=== PATIENT | female | born 1985 | race Caucasian/White ===

== ENCOUNTER 2021-03-26 13:03 | Emergency (ER) | payer SELFPAY ==
[~2021-03-26] VITALS: Ht 165 cm; Wt 75.0 kg
--- NOTE | 2021-03-26 14:23 | ED Headache ---
General Chief Complaint: Head/Cervical Problems Stated Complaint: BURDICK,NECK/SHOULDER PAIN Source: patient Exam Limitations: no limitations (SANJUANITA NEVES STUDENT) History of Present Illness Date Seen by Provider: Mar 26, 2021 Time Seen by Provider: 14:15 Initial Comments Patient is a 35yoF with history of migraines and prescription drug abuse in distant past who presents with chief complaint of neck pain, stiffness and headache that began suddenly 4 days ago. Patient states she was relaxing and laying down when she suddenly had a burning pain at the back of her neck and a "deep burning in right ear" that has now spread to involve most of the neck. She has shoulder pain as well as a "heaviness" in her shoulders. Three days ago she also developed a L-sided headache that moved to the right side the next day and has been bilateral in the vertex area since yesterday. She does not like to take medication, but she has been alternating Tylenol and Ibuprofen (last dose 0600) which helps very little. She also has intermittent dizziness and lightheadedness as well as photophobia. She is nauseous and has been throwing up over the last few days. She says that this headache does not feel like migraines she has had in the past and she has never felt the burning sensation in her neck before. She denies aura, otalgia, sore throat, diarrhea, fever at home, SOA and chest pain. There was no trauma to the neck. Patient has had a tubal ligation. She is febrile in the ED 100.5F. Severity/Quality: severe Location: occipital Prior Headaches/Recent Trauma: no recent headache/trauma Modifying Factors: improves with exposure to light Associated Symptoms: nausea/vomiting, stiff neck (SANJUANITA NEVES STUDENT) Allergies and Home Medications Allergies Coded Allergies: cefaclor (Verified Allergy, Unknown, 03/26/21) oseltamivir (Verified Allergy, Unknown, 03/26/21) Patient Home Medication List Home Medication List Reviewed: Yes (KECIA SANTAMARIA) Hydrocodone/Acetaminophen (Hydrocodone-Acetamin 5-325 mg) 1 Each Tablet, 1 TAB PO Q6H PRN for PAIN-MODERATE (5-7) Prescribed by: KECIA SANTAMARIA on 03/26/21 135 Indomethacin (Indomethacin) 50 Mg Capsule, 50 MG PO BID WITH MEALS PRN for severe headache Prescribed by: REYMUNDO MEJIA on 03/26/21 1729 Ondansetron (Ondansetron Odt) 4 Mg Tab.rapdis, 4 MG PO Q6H PRN for NAUSEA/VOMITING Prescribed by: KECIA SANTAMARIA on 03/26/21 1831 Tizanidine HCl (Tizanidine HCl) 2 Mg Tablet, 2 MG PO Q8H PRN for muscle spasm Prescribed by: REYMUNDO MEJIA on 03/26/21 1729 Discontinued Medications Indomethacin (Indomethacin) 50 Mg Capsule, 50 MG PO BID WITH MEALS PRN for headache Prescribed by: REYMUNDO MEJIA on 03/26/21 1725 Review of Systems Review of Systems Constitutional: No chills, No diaphoresis; dizziness; No fever, No weakness Eyes: Denies Blurred Vision, Denies Decreased Acuity; Photophobia Ears, Nose, Mouth, Throat: denies ear pain, denies nose discharge, denies throat pain Respiratory: No cough, No short of breath Cardiovascular: No chest pain, No edema, No palpitations Gastrointestinal: No abdominal pain, No constipation, No diarrhea, No heartburn; nausea, vomiting : No Musculoskeletal: No back pain; muscle pain, muscle stiffness, neck pain Skin: no symptoms reported Psychiatric/Neurological: No Symptoms Reported (SANJUANITA NEVES STUDENT) Past Mejpmkp-Joedcm-Bcaevr Hx Patient Social History Tobacco Use?: No Use of E-Cig and/or Vaping dev: No (KECIA SANTAMARIA) Past Medical History Tubal Ligation : No (SANJUANITA NEVES STUDENT) Physical Exam Vital Signs Vital Signs - First Documented 03/26/21 14:00 Temp 37.9 Pulse 120 Resp 18 B/P (MAP) 138/71 (93) Pulse Ox 97 O2 Delivery Room Air (REYMUNDO MEJIA MD) Vital Signs Capillary Refill : (SANJUANITA NEVES) Height, Weight, BMI Height: '" Weight: lbs. oz. kg; BMI Method: General Appearance: WD/WN, no apparent distress Neck: No full range of motion; limited range of motion, tender lateral Cardiovascular: regular rate, rhythm, no edema, no murmur Respiratory: chest non-tender, lungs clear, normal breath sounds, no respiratory distress, no accessory muscle use Gastrointestinal: normal bowel sounds, non tender, soft Back: no CVA tenderness, no vertebral tenderness Extremities: normal range of motion, non-tender, no pedal edema, no calf tenderness, normal capillary refill Psychiatric: alert, oriented x 3 Crainal Nerves: normal hearing, normal speech Motor/Sensory: no motor deficit, no sensory deficit Skin: normal color, warm/dry Lymphatic: no adenopathy (SANJUANITA NEVES STUDENT) Procedures/Interventions Discussed Risk,Benefits: Yes Patient Consents: Yes Position: Lying, L4-5, Left Sterile Technique: Yes Fluid Color: clear Size of Disposal Tray Used: Adult (REYMUNDO MEJIA MD) Progress/Results/Core Measures Results/Orders Lab Results Laboratory Tests Test 03/26/21 15:01 03/26/21 17:12 Range/Units White Blood Count 4.0 L 4.3-11.0 10^3/uL Red Blood Count 4.84 3.80-5.11 10^6/uL Hemoglobin 14.6 11.5-16.0 g/dL Hematocrit 44 35-52 % Mean Corpuscular Volume 90 80-99 fL Mean Corpuscular Hemoglobin 30 25-34 pg Mean Corpuscular Hemoglobin Concent 34 32-36 g/dL Red Cell Distribution Width 13.1 10.0-14.5 % Platelet Count 213 130-400 10^3/uL Mean Platelet Volume 10.6 9.0-12.2 fL Immature Granulocyte % (Auto) 1 % Neutrophils (%) (Auto) 69 42-75 % Lymphocytes (%) (Auto) 15 12-44 % Monocytes (%) (Auto) 14 H 0-12 % Eosinophils (%) (Auto) 0 0-10 % Basophils (%) (Auto) 1 0-10 % Neutrophils # (Auto) 2.7 1.8-7.8 10^3/uL Lymphocytes # (Auto) 0.6 L 1.0-4.0 10^3/uL Monocytes # (Auto) 0.6 0.0-1.0 10^3/uL Eosinophils # (Auto) 0.0 0.0-0.3 10^3/uL Basophils # (Auto) 0.0 0.0-0.1 10^3/uL Immature Granulocyte # (Auto) 0.0 0.0-0.1 10^3/uL Sodium Level 137 135-145 MMOL/L Potassium Level 3.7 3.6-5.0 MMOL/L Chloride Level 101 98-107 MMOL/L Carbon Dioxide Level 25 21-32 MMOL/L Anion Gap 11 5-14 MMOL/L Blood Urea Nitrogen 11 7-18 MG/DL Creatinine 0.84 0.60-1.30 MG/DL Estimat Glomerular Filtration Rate 92 BUN/Creatinine Ratio 13 Glucose Level 87 70-105 MG/DL Calcium Level 9.3 8.5-10.1 MG/DL C-Reactive Protein High Sensitivity 0.68 H 0.00-0.50 MG/DL CSF Tube Number 3 CSF Appearance CLEAR CSF Color COLORLESS CSF WBC 1.6 0-5 CELLS CSF RBC 0.5 H 0-0 CELLS CSF Lymphocytes % CSF Mononuclear WBCs % CSF Polynuclear WBCs % CSF Glucose 60 50-80 MG/DL CSF Total Protein 82 H 15-40 MG/DL Reference Lab Test Specimen Type CSF Herpes Simplex Virus I DNA (PCR) Not Detected Not Detected Herpes Simplex Virus II DNA (PCR) Not Detected Not Detected (REYMUNDO MEJIA MD) Micro Results Microbiology 03/26/21 Gram Stain - Final, Resulted 03/26/21 CSF Culture - Preliminary, Resulted No growth (REYMUNDO MEJIA MD) My Orders Orders - REYMUNDO MEJIA MD Ed Iv/Invasive Line Start (03/26/21 14:35) Ct Head Wo (03/26/21 14:35) Cbc With Automated Diff (03/26/21 14:35) Basic Metabolic Panel (03/26/21 14:35) Hs C Reactive Protein (03/26/21 14:35) Ondansetron Injection (Zofran Injectio (03/26/21 14:45) Ns Iv 1000 Ml (Sodium Chloride 0.9%) (03/26/21 14:45) Ketorolac Injection (Toradol Injection) (03/26/21 14:45) Csf Culture (03/26/21 15:49) Csf Cell Count (03/26/21 15:49) Csf Glucose (03/26/21 15:49) Csf Total Protein (03/26/21 15:49) Fentanyl Inj (Sublimaze Injection) (03/26/21 16:00) Lorazepam Injection (Ativan Injection) (03/26/21 16:45) Fentanyl Inj (Sublimaze Injection) (03/26/21 17:06) Fentanyl Inj (Sublimaze Injection) (03/26/21 17:30) (REYMUNDO MEJIA MD) Medications Given in ED (REYMUNDO MEJIA MD) Vital Signs/I&O 03/26/21 03/26/21 14:00 19:10 Temp 37.9 Pulse 120 100 Resp 18 18 B/P (MAP) 138/71 (93) 124/85 Pulse Ox 97 98 O2 Delivery Room Air (REYMUNDO MEJIA MD) Progress Progress Note : Time: 16:12 Progress Note 35-year-old female presents chief complaint "worst headache of my life". Onset 4 days ago, thunderclap in nature. Was sitting playing on her phone when she had sudden severe onset of right suboccipital pain. Over the course of the 4 days she has had change in quality and severity of the pain that is now at the crown of her head and down the back of her neck. She is mildly febrile at 100.5. No visual complaints. She has been nauseous and vomiting. A little bit of problem with balance but is not ataxic. No numbness, weakness or tingling. No URI symptoms. No chest pain or shortness of breath. No abdominal pain. No sick contacts recently. She has tried Tylenol and ibuprofen without relief. No family history of brain aneurysm or tumor. No recent trauma. Labs reviewed, within normal limits. CT brain noncontrast no acute findings. Concern for subarachnoid hemorrhage and as the patient is 4 days out LP would be ideal for further evaluation. Patient is extremely apprehensive about lumbar puncture. Initially stated that she did not want to proceed with the test. I talked to her and explained the risks and benefits again. She would like me to talk to one of her friends over the phone. I have given her a little fentanyl for her nerves. Headache was slightly relieved with some Toradol. (REYMUNDO MEJIA MD) Progress Note : Time: 18:28 Progress Note Assumed care of the patient at shift change. CSF shows significantly elevated protein but not above 150. An aseptic viral meningitis seems to be most likely source of her headache nausea. Her symptoms have significantly abated after Toradol, fentanyl and Zofran. Plan to put her out with some medications and return precautions. The patient is eating and drinking and has had a liter of IV fluids. Added studies for Enterococcus and HSV PCR's. (KECIA SANTAMARIA) Diagnostic Imaging Diagonstic Imaging: CT Plain Films/CT/US/NM/MRI: head Comments [facility]. [place], [place] NAME: JALIL TIRADO [facility] REC#: [id number] PT STATUS: REG ER : 1985 PHYSICIAN: REYMUNDO MEJIA MD ADMIT DATE: 03/26/21/ER Draft Date of Exam:03/26/21 CT HEAD WO Clinical indications: Patient reports 4 days ago had neck burning and neck felt stiff. Patient had a headache onset 3 days ago. Pain meds not helping. EXAM: Axial CT scan of the brain performed without IV contrast with sagittal and coronal reformatted images. Auto Exposure Controls were utilized during the CT exam to meet ALARA standards for radiation dose reduction. COMPARISON: None. FINDINGS: There is no evidence of acute cerebral infarct, intracranial hemorrhage, or gross mass effect. The brain parenchymal volume appears appropriate for patient's age. There is normal north-white matter distinction. There is no significant midline shift or herniation. There is no evidence of hydrocephalus. The basal cisterns are unremarkable. The skull, extracranial soft tissue, and orbits are unremarkable. There is moderate lobulated mucosal thickening involving both maxillary sinuses. There is mild mucosal thickening involving the ethmoid sinus and sphenoid sinus. Temporal bones show no significant abnormality. IMPRESSION: [id number] paranasal sinus disease. Otherwise unremarkable CT scan the brain. Dictated on workstation # [id number] Dict: 03/26/21 1450 Trans: 03/26/21 7035 NURIA [id number] Interpreted by: DEBORAH MILLS MD Electronically signed by: (REYMUNDO MEJIA MD) Departure Impression Primary Impression: Headache, acute Qualified Codes: R51.9 - Headache, unspecified Additional Impression: Viral meningitis, unspecified Disposition: 01 HOME, SELF-CARE Condition: Stable Departure-Patient Inst. Decision time for Depature: 17:25 (REYMUNDO MEJIA MD) Referrals: NO,LOCAL PHYSICIAN (PCP/Family) Primary Care Physician Patient Instructions: Headache, Adult, Viral Meningitis, Adult ED Add. Discharge Instructions: Drink lots of fluids to stay well-hydrated. Use a heating pad to the sore areas of your neck and upper back as needed. Monitor yourself at home for fever. Come back if you find that it is worsening and you have new concerning symptoms. Tizanidine, which is a muscle relaxer, 2 mg every 8 hours as needed for muscle spasm/pain. Indomethacin which is an anti-inflammatory/pain medicine, 1 tablet every 6-8 hours with food as needed for severe headache. Do not take extra ibuprofen when taking indomethacin. Hydrocodone 1 tablet every 6 hours as necessary for severe breakthrough pain. Ondansetron 1 tablet every 6 hours under the tongue as necessary for nausea and or vomiting. Come back to the emergency room for any worsening headache, new emergent concerning symptoms. Scripts Hydrocodone/Acetaminophen (Hydrocodone-Acetamin 5-325 mg) 1 Each Tablet 1 TAB PO Q6H PRN for PAIN-MODERATE (5-7), #10 TAB 0 Refills Prov: KECIA SANTAMARIA 03/26/21 Ondansetron (Ondansetron Odt) 4 Mg Tab.rapdis 4 MG PO Q6H PRN for NAUSEA/VOMITING, #15 TAB 0 Refills Prov: KECIA SANTAMARIA 03/26/21 Tizanidine HCl (Tizanidine HCl) 2 Mg Tablet 2 MG PO Q8H PRN for muscle spasm, #12 TAB Prov: REYMUNDO MEJIA MD 03/26/21 Indomethacin (Indomethacin) 50 Mg Capsule 50 MG PO BID WITH MEALS PRN for severe headache, #20 CAP Prov: REYMUNDO MEJIA MD 03/26/21 Verification and Attestation of Medical Student E/M Service A medical student performed and documented this service in my presence. I reviewed and verified all information documented by the medical student and made modifications to such information, when appropriate. I personally performed the physical exam and medical decision making. Reymundo Mejia, Mar 29, 2021,06:27 (REYMUNDO MEJIA MD) SANJUANITA NEVES MED STUDENT Mar 26, 2021 14:23 REYMUNDO MEJIA MD Mar 26, 2021 16:15 KECIA SANTAMARIA Mar 26, 2021 18:32
[2021-03-26] MEDS ORDERED: ONDANSETRON 4 MG/2 ML (SDV) Z0FRAN IVP ONE (14:45)
[2021-03-26] MEDS ORDERED: KETOROLAC 30 MG/ML VIAL IVP ONE (14:45)
[2021-03-26] MEDS ORDERED: NS IV 1000 ML 1,000 ML IV SCH (14:45)
--- NOTE | 2021-03-26 14:55 | Diagnostic Imaging Report ---
Clinical indications: Patient reports 4 days ago had neck burning and neck felt stiff. Patient had a headache onset 3 days ago. Pain meds not helping. EXAM: Axial CT scan of the brain performed without IV contrast with sagittal and coronal reformatted images. Auto Exposure Controls were utilized during the CT exam to meet ALARA standards for radiation dose reduction. COMPARISON: None. FINDINGS: There is no evidence of acute cerebral infarct, intracranial hemorrhage, or gross mass effect. The brain parenchymal volume appears appropriate for patient's age. There is normal north-white matter distinction. There is no significant midline shift or herniation. There is no evidence of hydrocephalus. The basal cisterns are unremarkable. The skull, extracranial soft tissue, and orbits are unremarkable. There is moderate lobulated mucosal thickening involving both maxillary sinuses. There is mild mucosal thickening involving the ethmoid sinus and sphenoid sinus. Temporal bones show no significant abnormality. IMPRESSION: [id number] paranasal sinus disease. Otherwise unremarkable CT scan the brain. Dictated by: Dictated on workstation # [id number]
[2021-03-26 15:08] LABS: BASOPHILS % (AUTO) 1 % (0-10); EOSINOPHILS % (AUTO) 0 % (0-10); HEMATOCRIT 44 % (35-52); HEMOGLOBIN 14.6 g/dL (11.5-16.0); LYMPHOCYTES # (AUTO) 0.6 10^3/uL (1.0-4.0); LYMPHOCYTES % (AUTO) 15 % (12-44); MEAN CORPUSCULAR HEMOGLOBIN 30 pg (25-34); MEAN CORPUSCULAR HGB CONC 34 g/dL (32-36); MEAN CORPUSCULAR VOLUME 90 fL (80-99); MEAN PLATELET VOLUME 10.6 fL (9.0-12.2); MONOCYTES # (AUTO) 0.6 10^3/uL (0.0-1.0); MONOCYTES % (AUTO) 14 % (0-12); NEUTROPHILS # (AUTO) 2.7 10^3/uL (1.8-7.8); NEUTROPHILS % (AUTO) 69 % (42-75); PLATELET COUNT 213 10^3/uL (130-400)
[2021-03-26 15:21] LABS: POTASSIUM 3.7 MMOL/L (3.6-5.0)
[2021-03-26 15:22] LABS: CALCIUM 9.3 MG/DL (8.5-10.1)
[2021-03-26 15:26] LABS: CREATININE SERUM 0.84 MG/DL (0.60-1.30)
[2021-03-26] MEDS ORDERED: fentaNYL INJ 100 MCG/2 ML AMP IVP ONE ×2 (16:00→17:30)
[2021-03-26] MEDS ORDERED: LORazepam INJ 2 MG/ML (ATIVAN) VIAL IVP ONE (16:45)
[2021-03-26] MEDS ORDERED: fentaNYL INJ 100 MCG/2 ML AMP ONE (17:06)
[2021-03-26] MEDS ORDERED: INDO50CA82 PO ×2 (17:25→17:29)
[2021-03-26] MEDS ORDERED: TIZA-169 PO (17:29)
[2021-03-26 17:45] LABS: CSF GLUCOSE 60 MG/DL (50-80)
[2021-03-26 17:50] LABS: APPEARANCE,CSF CLEAR; COLOR,CSF COLORLESS; CSF TUBE NUMBER 3; RED BLOOD CELL,CSF 0.5 CELLS (0-0); WHITE BLOOD CELL,CSF 1.6 CELLS (0-5)
[2021-03-26 17:51] LABS: CSF TOTAL PROTEIN 82 MG/DL (15-40)
[2021-03-26] MEDS ORDERED: ACHD5005 PO (18:31)
[2021-03-26] MEDS ORDERED: ONDA4TAB11 PO (18:31)
[2021-03-26] MEDS ORDERED: RX-ONDANSETRON 4 MG ODT (ZOFRAN) PPK #4 PO STA (19:02)
[2021-03-26 19:10] VITALS: BP 124/85
== END 2021-03-26 19:10 | disposition home or self-care (01) ==
LOC: ER 13:05
DX: R51.9 Headache, unspecified (principal); A87.9 Viral meningitis, unspecified
CPT/HCPCS: 36415; 62270; 70450; 80048; 82945; 84157; 85025; 86141; 87070; 87205; 87498; 87529; 89051